=== PATIENT | male | born 1985 | race Hispanic/Latino ===

== ENCOUNTER 2018-10-10 16:41 | Emergency (ER) | payer BC, SELFPAY ==
[2018-10-10] MEDS ORDERED: FLUORESCEIN SODIUM 1 MG/WRAP ONE ×2 (17:46→17:59)
[2018-10-10] MEDS ORDERED: TETRACAINE HCL 0.5% 4ML OPTH ONE ×2 (17:46→17:59)
--- NOTE | 2018-10-10 18:02 | ER ---
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 Transition of care: patient was not received from another setting of care. Onset of symptoms was October 10, 2018. Risk Assessment: Do you want to hurt yourself or someone else? Patient reports no desire to harm self or others. Initial Sepsis Screen: Does the patient meet any 2 criteria? No. Patient's initial sepsis screen is negative. Does the patient have a suspected source of infection? No. Patient's initial sepsis screen is negative. Care prior to arrival: None. 16:45 Method Of Arrival: Ambulatory 16:45 Acuity: ESTEFANY 3 hj Historical: - Allergies: 16:47 No Known Allergies; hj - PMHx: 16:47 None; hj - PSHx: 16:47 None; hj - Immunization history:: Adult Immunizations up to date. - Family history:: not pertinent. - Social history:: Smoking status: Patient/guardian denies using tobacco. - Hospitalizations: : No recent hospitalization is reported. Screenin:24 Abuse screen: Denies threats or abuse. Denies injuries from another. Nutritional hb screening: No deficits noted. Tuberculosis screening: No symptoms or risk factors identified. Fall Risk None identified. Assessment: 17:00 General: Appears in no apparent distress. uncomfortable, Behavior is calm, cooperative. hb Pain: Pain currently is 10 out of 10 on a pain scale. Neuro: Level of Consciousness is awake, alert, obeys commands, Oriented to person, place, time, situation. Cardiovascular: Capillary refill < 3 seconds Patient's skin is warm and dry. Respiratory: Airway is patent Respiratory effort is even, unlabored, Respiratory pattern is regular, symmetrical. GI: No signs and/or symptoms were reported involving the gastrointestinal system. : No signs and/or symptoms were reported regarding the genitourinary system. EENT: Sclera/Cornea reddened, tearing. Derm: Skin is intact, is healthy with good turgor, Skin is pink, warm \T\ dry. Musculoskeletal: No signs and/or symptoms reported regarding the musculoskeletal system. 18:00 Reassessment: Patient appears in no apparent distress at this time. No changes from previously documented assessment. Patient and/or family updated on plan of care and expected duration. Pain level reassessed. Patient is alert, oriented x 3, equal unlabored respirations, skin warm/dry/pink. Vital Signs: 16:48 BP 130 / 73; Pulse 92; Resp 18; Temp 97.6(TE); Pulse Ox 97% on R/A; Weight 142.88 kg; hj Height 6 ft. 0 in. (182.88 cm); Pain 10/10; 17:30 BP 132 / 72; Pulse 88; Resp 15; Pulse Ox 100% on R/A; hb 16:48 Body Mass Index 42.72 (142.88 kg, 182.88 cm) ED Course: 16:43 Patient arrived in ED. ag5 16:43 Unknown, Unknown is Private Physician. ag5 16:47 Triage completed. hj 16:47 Arm band placed on left wrist. hj 16:55 Patient has correct armband on for positive identification. Bed in low position. Call light in reach. Side rails up X 1. 17:15 Bhavesh Luna MD is Attending Physician. rn 18:26 No provider procedures requiring assistance completed. Patient did not have IV access hb during this emergency room visit. Administered Medications: 17:41 Drug: Tetracaine Drops 0.5 % 1 drops {Note: administered by Dr. Luna.} Route: hb Ophthalmic; Site: both eyes; Outcome: 18:01 Discharge ordered by . rn 18:26 Discharged to home ambulatory, with significant other. hb 18:26 Condition: stable 18:26 Discharge instructions given to patient, Instructed on discharge instructions, follow up and referral plans. Demonstrated understanding of instructions, follow-up care. 18:27 Patient left the ED. 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
--- NOTE | 2018-10-10 18:02 | EDPHYS ---
Physician Documentation [facility] Name: Chris Thurman Age: 33 yrs Sex: Male : 1985 Arrival Date: 10/10/2018 Time: 16:43 Bed 5 Private MD: Unknown, Unknown ED Physician Bhavesh Luna HPI: 10/10 17:42 This 33 yrs old Male presents to ER via Ambulatory with complaints of Chemical rn Exposure. 17:42 The patient is experiencing burning, redness, tearing, The patient sustained a splash, rn to both eyes, caused by tolonate, DHI. Onset: The symptoms/episode began/occurred 2 hour(s) ago. Duration: the symptoms last a few seconds. Aggravated by rubbing, Alleviated by eye flush. Severity of symptoms: At their worst the symptoms were moderate in the emergency department the symptoms have improved. The patient has not experienced similar symptoms in the past. Reports splashed in eyes/face with tolonate/DHI, was wearing safety glasses not goggles, wears contacts, reports majority of symptoms is from eye irritation, took contacts out and flushed for 30 min immediately after incident, reports mild facial burning sensation of skin. No loss of vision. Reports vision about baseline for him without contacts.. Historical: - Allergies: 16:47 No Known Allergies; hj - PMHx: 16:47 None; hj - PSHx: 16:47 None; hj - Immunization history:: Adult Immunizations up to date. - Family history:: not pertinent. - Social history:: Smoking status: Patient/guardian denies using tobacco. - Hospitalizations: : No recent hospitalization is reported. ROS: 17:42 Constitutional: Negative for fever, chills, and weight loss, Eyes: + irritation of both rn eyes ENT: Negative for injury, pain, and discharge, Skin: Negative for injury, rash, and discoloration. Exam: 17:42 Constitutional: This is a well developed, well nourished patient who is awake, alert, rn and in no acute distress. Head/Face: Normocephalic, atraumatic. Eyes: Pupils equal round and reactive to light, extra-ocular motions intact. + bilateral conjunctival irritation, no corneal uptake of fluorescein, neg benita's, vision normal after tetracaine drops ENT: No oral swelling, no stridor Cardiovascular: Regular rate and rhythm. No pulse deficits. Respiratory: Lungs have equal breath sounds bilaterally, clear to auscultation. No increased work of breathing, no retractions or nasal flaring. Skin: Warm, dry, + mild skin irritation of face without gross erythema MS/ Extremity: Pulses equal, no cyanosis. Neuro: Awake and alert, GCS 15, oriented to person, place, time, and situation. Cranial nerves II-XII grossly intact. Motor strength 5/5 in all extremities. Sensory grossly intact. Cerebellar exam normal. Normal gait. Vital Signs: 16:48 BP 130 / 73; Pulse 92; Resp 18; Temp 97.6(TE); Pulse Ox 97% on R/A; Weight 142.88 kg; hj Height 6 ft. 0 in. (182.88 cm); Pain 10/10; 17:30 BP 132 / 72; Pulse 88; Resp 15; Pulse Ox 100% on R/A; hb 16:48 Body Mass Index 42.72 (142.88 kg, 182.88 cm) MDM: 17:15 Patient medically screened. rn 18:00 Differential diagnosis: Corneal abrasion of Corneal ulcer of Chemical conjunctivitis rn in. Data reviewed: vital signs, nurses notes, and as a result, I will discharge patient. Counseling: I had a detailed discussion with the patient and/or guardian regarding: the historical points, exam findings, and any diagnostic results supporting the discharge/admit diagnosis, the need for outpatient follow up, to return to the emergency department if symptoms worsen or persist or if there are any questions or concerns that arise at home. Medical screen evaluation completed. [facility] emergency medical condition absent. Response to treatment: the patient's symptoms have mildly improved after treatment, and as a result, I will discharge patient. Special discussion: I discussed with the patient/guardian in detail that at this point there is no indication for admission to the hospital. It is understood, however, that if the symptoms persist or worsen the patient needs to return immediately for re-evaluation. Based on the history and exam findings, there is no indication for further emergent testing or inpatient evaluation. I discussed with the patient/guardian the need to see the opthamologist for further evaluation of the symptoms. 10/10 17:29 Order name: Fluoresene Opth strip; Complete Time: 17:40 rn Administered Medications: 17:41 Drug: Tetracaine Drops 0.5 % 1 drops {Note: administered by Dr. Luna.} Route: hb Ophthalmic; Site: both eyes; Disposition: 10/10/18 18:01 Discharged to Home. Impression: Chemical Conjunctivitis, Contact with and (suspected) exposure to hazardous, chiefly nonmedicinal, chemicals. - Condition is Stable. - Discharge Instructions: Chemical Conjunctivitis, Adult. - Medication Reconciliation Form, Thank You Letter, Antibiotic Education, Prescription Opioid Use form. - Follow up: Private Physician; When: As needed; Reason: Recheck today's complaints, Re-evaluation by your physician. - Problem is new. - Symptoms have improved. Signatures: Bhavesh Luna MD MD rn Joaquin, Henry, RN RN hj Baxter, Heather, RN RN Corrections: (The following items were deleted from the chart) 18:27 18:01 10/10/2018 18:01 Discharged to Home. Impression: Chemical Conjunctivitis; Contact hb with and (suspected) exposure to hazardous, chiefly nonmedicinal, chemicals. Condition is Stable. Forms are Medication Reconciliation Form, Thank You Letter, Antibiotic Education, Prescription Opioid Use. Follow up: Private Physician; When: As needed; Reason: Recheck today's complaints, Re-evaluation by your physician. Problem is new. Symptoms have improved. rn
== END 2018-10-10 18:27 | disposition home or self-care (01) ==
LOC: ER 16:41
DX: T65.891A Toxic effect of other specified substances, accidental (unintentional), initial encounter (principal); H10.213 Acute toxic conjunctivitis, bilateral
CPT/HCPCS: 99283